=== PATIENT | female | born 1975 | race Caucasian/White ===

== ENCOUNTER 2018-07-12 15:32 | Emergency (ER) | payer BC ==
[2018-07-12 15:50] VITALS: BP 106/72; PULSE 79; RESP 16; TEMP 98.1
--- NOTE | 2018-07-12 16:10 | ED ---
Recheck HPI - General Chief Complaint: Recheck/Abnormal Lab/Rx Stated Complaint: med refill Time Seen by Provider: 07/12/18 15:51 Source: patient, RN notes reviewed, old records reviewed Mode of arrival: ambulatory Limitations: no limitations - History of Present Illness Initial Comments: Patient is a 43-year-old female who presents emergency Department after recently moving back to the area. She presents today needing a refill for Paxil medication. She ran out 2 days ago. She tried to call her previous primary care doctor and he is recently retired. Patient states that [facility] and they would not refill her prescriptions for her. Patient has had any other complaints. - Related Data Previous Rx's Medication Instructions Recorded PARoxetine HCL [Paxil] 30 mg PO DAILY #30 tab 07/12/18 Allergies Allergy/AdvReac Type Severity Reaction Status Date / Time No Known Allergies Allergy Verified 07/12/18 15:50 Review of Systems ROS Statement: Those systems with pertinent positive or pertinent negative responses have been documented in the HPI. ROS Other: All systems not noted in ROS Statement are negative. Past Medical History Past Medical History: No Reported History History of Any Multi-Drug Resistant Organisms: None Reported Past Surgical History: Appendectomy Additional Past Surgical History / Comment(s): breast biopsy Past Psychological History: Depression Smoking Status: Never smoker Past Alcohol Use History: None Reported Past Drug Use History: None Reported General Exam - General Exam Comments Initial Comments: 43-year-old female. Alert and oriented. Patient appears in no distress. Limitations: no limitations General appearance: alert, in no apparent distress Head exam: Present: atraumatic, normocephalic, normal inspection Eye exam: Present: normal appearance, PERRL, EOMI. Absent: scleral icterus, conjunctival injection, periorbital swelling ENT exam: Present: normal exam, mucous membranes moist Neck exam: Present: normal inspection. Absent: tenderness, meningismus, lymphadenopathy Respiratory exam: Present: normal lung sounds bilaterally. Absent: respiratory distress, wheezes, rales, rhonchi, stridor Cardiovascular Exam: Present: regular rate, normal rhythm, normal heart sounds. Absent: systolic murmur, diastolic murmur, rubs, gallop, clicks GI/Abdominal exam: Present: soft, normal bowel sounds. Absent: distended, tenderness, guarding, rebound, rigid Neurological exam: Present: alert, oriented X3, CN II-XII intact Psychiatric exam: Present: normal affect, normal mood Skin exam: Present: warm, dry, intact, normal color. Absent: rash Course Vital Signs 07/12/18 15:46 Temperature 98.1 F Pulse Rate 79 Respiratory 16 Rate Blood Pressure 106/72 O2 Sat by Pulse 99 Oximetry Medical Decision Making - Medical Decision Making 43-year-old female presents today requesting med refill her Paxil. Patient rep orts she's been out of it for 2 days. States she has some other that since she's been off of her medication this past 2 days. Patient is alert and oriented. She denies any significant depression suicidal thoughts. She otherwise appears well. She is asking for referrals for primary care physicians. Patient will be discharged with a short prescription for Paxil. Discussed with prompt follow-up with her primary care doctors and given referrals. All questions were answered. Disposition Clinical Impression: Medication refill Disposition: HOME SELF-CARE Condition: Good Instructions (If sedation given, give patient instructions): Medicine Refill (ED) Additional Instructions: Patient advised to have close follow-up with primary care physician. Return to the emergency department if any alarming signs or symptoms occur. Prescriptions: PARoxetine HCL [Paxil] 30 mg PO DAILY #30 tab Is patient prescribed a controlled substance at d/c from ED?: No Referrals: None,Stated [Primary Care Provider] - 1-2 days Gaby Sims MD [STAFF PHYSICIAN] - 1-2 days Sb Bonilla Jr, DO [Doctor of Osteopathic Medicine] - 1-2 days Kareem Rodriguez MD [STAFF PHYSICIAN] - 1-2 days Mukesh Carter MD [STAFF PHYSICIAN] - 1-2 days Emiliano Courtney DO [STAFF PHYSICIAN] - 1-2 days Time of Disposition: 16:08
== END 2018-07-12 16:22 | disposition home or self-care (01) ==
LOC: EC 15:32
DX: Z76.0 Encounter for issue of repeat prescription (principal)
CPT/HCPCS: 99282

== ENCOUNTER 2018-08-13 13:24 | Emergency (ER) | payer BC ==
[2018-08-13] MEDS ORDERED: SODIUM CHLORIDE 0.9% 2,000 ML IV STA (15:02)
[2018-08-13] MEDS ORDERED: ONDANSETRON 4 MG/2 ML VIAL IVP STA (15:11)
--- NOTE | 2018-08-13 15:22 | ED ---
Nausea/Vomiting/Diarrhea HPI - General Chief complaint: Nausea/Vomiting/Diarrhea Stated complaint: Vomiting-5 weeks Time Seen by Provider: 08/13/18 15:01 Source: patient, RN notes reviewed Mode of arrival: ambulatory Limitations: no limitations - History of Present Illness Initial comments: 43-year-old female presents emergency Department chief complaint of nausea vomiting diarrhea. Patient states symptoms have been persistent for last 6-7 h ours. Patient states that she recently found out she is . Patient is A0 is unsure how far along she is. Patient has contacted blood [employer] for an appointment on August 27. Patient denies any dysuria hematuria. Denies any vaginal bleeding or vaginal discharge. Patient states that she just feels very dehydrated and has mild abdominal cramping. - Related Data Home Medications Medication Instructions Recorded Confirmed L.acidoph,Paracasei, B.lactis 1 cap PO DAILY 08/13/18 08/13/18 [Probiotic] Previous Rx's Medication Instructions Recorded PARoxetine HCL [Paxil] 30 mg PO DAILY #30 tab 07/12/18 Ondansetron Odt [Zofran Odt] 4 mg PO Q8HR PRN #14 tab 08/13/18 Allergies Allergy/AdvReac Type Severity Reaction Status Date / Time No Known Allergies Allergy Verified 08/13/18 15:09 Review of Systems ROS Statement: Those systems with pertinent positive or pertinent negative responses have been documented in the HPI. ROS Other: All systems not noted in ROS Statement are negative. Past Medical History Past Medical History: No Reported History History of Any Multi-Drug Resistant Organisms: None Reported Past Surgical History: Appendectomy Additional Past Surgical History / Comment(s): breast biopsy Past Psychological History: Depression Smoking Status: Never smoker Past Alcohol Use History: None Reported Past Drug Use History: None Reported General Exam Limitations: no limitations General appearance: alert, in no apparent distress Head exam: Present: atraumatic, normocephalic, normal inspection Neck exam: Present: normal inspection. Absent: tenderness, meningismus, lymphadenopathy Respiratory exam: Present: normal lung sounds bilaterally. Absent: respiratory distress, wheezes, rales, rhonchi, stridor Cardiovascular Exam: Present: regular rate, normal rhythm, normal heart sounds. Absent: systolic murmur, diastolic murmur, rubs, gallop, clicks GI/Abdominal exam: Present: soft, normal bowel sounds. Absent: distended, tenderness, guarding, rebound, rigid Back exam: Absent: CVA tenderness (R), CVA tenderness (L) Skin exam: Present: warm, dry, intact, normal color. Absent: rash Course Vital Signs 08/13/18 13:58 Temperature 98.1 F Pulse Rate 86 Respiratory 20 Rate Blood Pressure 120/73 O2 Sat by Pulse 99 Oximetry Medical Decision Making - Medical Decision Making 43-year-old female was in for nausea vomiting diarrhea. Patient is 6 weeks 1 day and ultrasound, heart rate 127. Patient has no vaginal bleeding or vaginal discharge. Patient was hydrated in feels really improved after 2 L of fluid and antiemetics. Patient outlined risk of taking Zofran during . She does understand. Patient will try vitamin B6 and Unisom prior. Patient has follow-up appointment with [employer]. Return parameters discussed. - Lab Data Result diagrams: 08/13/18 15:55 08/13/18 15:55 Lab Results 08/13/18 08/13/18 08/13/18 Range/Units 15:55 15:55 15:55 WBC 14.2 H (3.8-10.6) k/uL RBC 4.53 (3.80-5.40) m/uL Hgb 14.2 (11.4-16.0) gm/dL Hct 42.9 (34.0-46.0) % MCV 94.7 (80.0-100.0) fL MCH 31.4 (25.0-35.0) pg MCHC 33.1 (31.0-37.0) g/dL RDW 13.4 (11.5-15.5) % Plt Count 259 (150-450) k/uL Neutrophils % 93 % Lymphocytes % 4 % Monocytes % 2 % Eosinophils % 0 % Basophils % 0 % Neutrophils # 13.2 H (1.3-7.7) k/uL Lymphocytes # 0.6 L (1.0-4.8) k/uL Monocytes # 0.3 (0-1.0) k/uL Eosinophils # 0.1 (0-0.7) k/uL Basophils # 0.0 (0-0.2) k/uL Sodium 139 (137-145) mmol/L Potassium 4.3 (3.5-5.1) mmol/L Chloride 105 (98-107) mmol/L Carbon Dioxide 25 (22-30) mmol/L Anion Gap 9 mmol/L BUN 11 (7-17) mg/dL Creatinine 0.46 L (0.52-1.04) mg/dL Est GFR (CKD-EPI)AfAm >90 (>60 ml/min/1.73 sqM) Est GFR (CKD-EPI)NonAf >90 (>60 ml/min/1.73 sqM) Glucose 124 H (74-99) mg/dL Calcium 10.0 (8.4-10.2) mg/dL Total Bilirubin 0.5 (0.2-1.3) mg/dL AST 19 (14-36) U/L ALT 33 (9-52) U/L Alkaline Phosphatase 92 (38-126) U/L Total Protein 7.4 (6.3-8.2) g/dL Albumin 4.8 (3.5-5.0) g/dL Lipase 42 (23-300) U/L Urine Color Yellow Urine Appearance Cloudy H (Clear) Urine pH 6.0 (5.0-8.0) Ur Specific [place] 1.031 (1.001-1.035) Urine Protein 1+ H (Negative) Urine Glucose (UA) Negative (Negative) Urine Ketones 2+ H (Negative) Urine Blood Small H (Negative) Urine Nitrite Negative (Negative) Urine Bilirubin Negative (Negative) Urine Urobilinogen <2.0 (<2.0) mg/dL Ur Leukocyte Esterase Negative (Negative) Urine RBC 10 H (0-5) /hpf Urine WBC 3 (0-5) /hpf Ur Squamous Epith Cells 3 (0-4) /hpf Urine Bacteria Occasional H (None) /hpf Urine Mucus Many H (None) /hpf Disposition Clinical Impression: Dehydration, Nausea/vomiting in Disposition: HOME SELF-CARE Condition: Stable Instructions (If sedation given, give patient instructions): Hyperemesis Gravidarum (ED) Additional Instructions: Please return to the Emergency Department if symptoms worsen or any other concerns. Prescriptions: Ondansetron Odt [Zofran Odt] 4 mg PO Q8HR PRN #14 tab PRN Reason: Nausea Is patient prescribed a controlled substance at d/c from ED?: No Referrals: Kareem Rodriguez MD [Primary Care Provider] - 1-2 days Time of Disposition: 16:46
[2018-08-13 16:13] LABS: Appearance,Urine Cloudy (Clear); Bacteria,Urine Occasional /hpf; Bilirubin,Urine Negative (Negative); Blood,Urine Small (Negative); Color,Urine Yellow; Glucose,Urine (UA) Negative (Negative); Ketones,Urine 2+ (Negative); Leukocyte Esterase,Urine Negative (Negative); Mucus,Urine Many /hpf; Nitrite,Urine Negative (Negative); Protein,Urine 1+ (Negative); RBC,Urine 10 /hpf (0-5); Specific Gravity,Urine 1.031 (1.001-1.035); Squamous Epithelial Cell,Urine 3 /hpf (0-4); Urobilinogen,Urine <2.0 mg/dL (<2.0)
[2018-08-13 16:17] LABS: ALT 33 U/L (9-52); AST 19 U/L (14-36); Albumin 4.8 g/dL (3.5-5.0); Alkaline Phosphatase 92 U/L (38-126); Anion Gap 9 mmol/L; Blood Urea Nitrogen 11 mg/dL (7-17); Carbon Dioxide 25 mmol/L (22-30); Chloride 105 mmol/L (98-107); Glucose 124 mg/dL (74-99); Lipase 42 U/L (23-300); Potassium 4.3 mmol/L (3.5-5.1); Sodium 139 mmol/L (137-145); Total Bilirubin 0.5 mg/dL (0.2-1.3); Total Protein 7.4 g/dL (6.3-8.2)
[2018-08-13 16:23] LABS: Basophils % (A) 0 %; Eosinophils # (A) 0.1 k/uL (0-0.7); Eosinophils % (A) 0 %; HCT 42.9 % (34.0-46.0); HGB 14.2 gm/dL (11.4-16.0); Lymphocytes # (A) 0.6 k/uL (1.0-4.8); Lymphocytes % (A) 4 %; MCH 31.4 pg (25.0-35.0); MCHC 33.1 g/dL (31.0-37.0); MCV 94.7 fL (80.0-100.0); Mean Platelet Volume 8.1; Monocytes # (A) 0.3 k/uL (0-1.0); Monocytes % (A) 2 %; Neutrophils # (A) 13.2 k/uL (1.3-7.7); Neutrophils % (A) 93 %; Platelet Count 259 k/uL (150-450); RBC 4.53 m/uL (3.80-5.40); RDW 13.4 % (11.5-15.5); WBC 14.2 k/uL (3.8-10.6)
--- NOTE | 2018-08-13 16:44 | US ---
EXAMINATION TYPE: Transabdominal DATE OF EXAM: 08/13/2018 4:34 PM COMPARISON: NONE CLINICAL HISTORY: Vomiting EXAM PERFORMED: Transabdominal (TA) EXAM MEASUREMENTS: GESTATIONAL AGE / DATING Physician Established: Not yet established Dates by LMP: (6 weeks/3 days) EDC: 04/05/19 Dates by First Scan: No previous this is first scan Dates by Current Scan for: (6 weeks/1 days) EDC: 04/07/19 MATERNAL ANATOMY Uterus: 8.7 x 4.5 x 5.6cm Right Ovary: 2.3 x 1.2 x 1.3cm Left Ovary: 3.2 x 2.0 x 1.7 Post CDS / Adnexa: wnl Presence of free fluid: no GESTATION / SURVEY CRL: 0.4 (6 weeks/1 days) Yolk Sac (normal less than 6mm): 2mm Heart Rate: 127 bpm Rhythm: Normal IUP: Viable IUP Date of LMP: 06/29/18 Beta HcG (if available): Not available at this time. IMPRESSION: The ultrasound gestational age is 6 weeks and 1 day. No complicating process seen.
[2018-08-13 17:13] LABS: HCG,Quantitative Serum 67647.5 mIU/mL
[2018-08-13 17:43] VITALS: BP 108/60; PULSE 78; RESP 18; TEMP 97.9
== END 2018-08-13 17:40 | disposition home or self-care (01) ==
LOC: EC 13:24
DX: O99.281 Endocrine, nutritional and metabolic diseases complicating pregnancy, first trimester (principal); E86.0 Dehydration; O99.89 Other specified diseases and conditions complicating pregnancy, childbirth and the puerperium; R11.2 Nausea with vomiting, unspecified; Z3A.01 Less than 8 weeks gestation of pregnancy; Z79.899 Other long term (current) drug therapy
CPT/HCPCS: 36415; 80053; 83690; 85025; 81001; 84702; 76801; 99284; 96374; 96361 ×2; J2405

== ENCOUNTER → 2020-09-30 | Outpatient (CLI) | payer OTHER ==
--- NOTE | 2020-09-30 08:02 | US ---
EXAMINATION TYPE: US abdomen complete DATE OF EXAM: 09/30/2020 COMPARISON: NONE CLINICAL HISTORY: R19.8 Other specified symptoms and signs involving. EXAM MEASUREMENTS: Liver Length: 14.0 cm Gallbladder Wall: 0.2 cm CBD: 0.3 cm Spleen: 9.1 cm Right Kidney: 9.8 x 2.9 x 3.9 cm Left Kidney: 9.1 x 3.8 x 3.4 cm Pancreas: Tail obscured by overlying bowel gas, visualized portions obscured by bowel Liver: wnl Gallbladder: wnl Evidence for sonographic Mancini's sign: No CBD: wnl Spleen: wnl Right Kidney: No hydronephrosis or masses seen Left Kidney: No hydronephrosis or masses seen Upper IVC: wnl Abd Aorta: wnl The visualized liver is homogenous. The intrahepatic portion of the IVC and proximal abdominal aorta are within normal limits. There is no evidence of shadowing mobile cholelithiasis. Common bile patric t is unremarkable. The visualized portions of the pancreas are homogenous. The spleen is unremarkab le. Kidneys are symmetric and free of hydronephrosis. No renal lesions are seen. IMPRESSION: Unremarkable study
== END | disposition home or self-care (01) ==
LOC: RADUSWWP 07:02
PROVIDERS: ATTEND Family Medicine
DX: R19.8 Other specified symptoms and signs involving the digestive system and abdomen (principal)
CPT/HCPCS: 76700

== ENCOUNTER → 2021-03-11 | Outpatient (CLI) | payer OTHER ==
--- NOTE | 2021-03-12 09:11 | US ---
EXAMINATION TYPE: US pelvic complete DATE OF EXAM: 03/11/2021 COMPARISON: NONE CLINICAL HISTORY: 45-year-old female N92.6 ABN MENSES, N94.6 MENSES PAINFUL. TECHNIQUE: Transabdominal sonographic images of the pelvis were acquired. Transvaginal sonographic i mages were medically necessary to better assess the following anatomy: Ovaries Date of LMP: 02/15/2021 FINDINGS: EXAM MEASUREMENTS: Uterus: 8.2 x 3.7 x 5.0 cm Endometrial Stripe: 0.8 cm Right Ovary: 2.1 x 1.3 x 1.5 cm Left Ovary: 3.4 x 2.2 x 1.8 cm 1. Uterus: Anteverted. There is a tiny 3 mm cervical nabothian cyst. There is an oval hypoechoic ar ea along the posterior uterine body that is primarily subserosal measuring 1.3 x 1.2 x 1.0 cm 2. Endometrium: wnl 3. Right Ovary: wnl 4. Left Ovary: wnl 5. Bilateral Adnexa: wnl 6. Posterior cul-de-sac: wnl IMPRESSION: A 1.3 cm subserosal fibroid along the posterior uterine body. Endometrial stripe measuring 8 mm. No s pecific abnormality otherwise seen.
== END ==
LOC: RADUSWWP 15:33
PROVIDERS: ATTEND Family Medicine
DX: D25.2 Subserosal leiomyoma of uterus (principal)
CPT/HCPCS: 76830; 76856

== ENCOUNTER → 2021-07-07 | Outpatient (CLI) | payer OTHER ==
--- NOTE | 2021-07-08 10:11 | MM ---
Reason for exam: clinical finding. Last mammogram was performed 17 years and 8 months ago. History: Patient is nulliparous. Benign excisional biopsy of the right breast, 2003. Physical Findings: A clinical breast exam by your physician is recommended on an annual basis and results should be correlated with mammographic findings. [facility] Diagnostic Mammo w CAD SADIE Bilateral CC and MLO view(s) were taken. No prior studies available for comparison. The breast tissue is extremely dense which could obscure a lesion on mammography. Benign calcifications in the left breast. Distortion far upper outer right breast. Rule out mass versus post operative changes. These results were verbally communicated with the patient and result sheet given to the patient on 07/07/21. ASSESSMENT: Incomplete: need additional imaging evaluation, BI-RAD 0 RECOMMENDATION: Ultrasound of the right breast.
--- NOTE | 2021-07-08 10:14 | USB ---
Reason for exam: additional evaluation requested from abnormal screening. History: Patient is nulliparous. Benign excisional biopsy of the right breast, 2003. Physical Findings: A clinical breast exam by your physician is recommended on an annual basis and results should be correlated with mammographic findings. US Breast Limited RT Right limited breast ultrasound including focal area of concern, retroareolar and axilla demonstrates a 1.0 x 1.0 x 0.7cm smooth, mixed lesion at 11 o'clock, 2cm from nipple and a 0.2 x 2.1 x 1.5cm irregular, solid, hypoechoic, vascular lesion at 11 o'clock, 3cm from nipple. Biopsy recommended. These results were verbally communicated with the patient and result sheet given to the patient on 07/07/21. ASSESSMENT: Suspicious, BI-RAD 4 RECOMMENDATION: Ultrasound core biopsy of the right breast. (x 2) Patient is unsure of what she wants to do, she will call Dr. Aranda with decision. Called Dr. Aranda's office with mammographic findings. PRELIMINARY REPORT CALLED AND FAXED TO DR. ARANDA ON 07/08/21.
== END | disposition home or self-care (01) ==
LOC: RADMAMWWP 14:15
PROVIDERS: ATTEND Family Medicine
DX: R92.1 Mammographic calcification found on diagnostic imaging of breast (principal); N64.89 Other specified disorders of breast
CPT/HCPCS: 77066

== ENCOUNTER → 2023-06-21 | Outpatient (CLI) | payer OTHER ==
--- NOTE | 2023-06-21 11:27 | USB ---
Reason for Exam: Clinical finding. Indicated Problems: Lump or thickening of the left side. Patient History: Menarche at age 15. Patient has no children. 2003, Benign Excisional Biopsy on the right side. Risk Values: Ronna 5 year model risk: 1.4%. NCI Lifetime model risk: 12.7%. Technique: Method: Whole Breast Handheld. Patient Position: RPO. Prior Study Comparison: 03/21/2003 Bilateral Special View Mammogram, [facility]. 04/14/2003 Screening Mammogram, Unknown. 10/24/2003 Right Diagnostic Mammogram, [facility]. 07/07/2021 Bilateral Diagnostic Mammogram, [facility]. Findings: The whole breast of the left breast, the axilla of the left breast and the retroareolar of the left breast were scanned. Multiple benign-appearing cysts are present within the left breast. Notable cysts include a bilobed cyst 2:00 addition 4 cm from the nipple which appears to correlate with the patient's palpable abnormality. Additional large cysts are present such as 3:00 position 4 cm from the nipple, 9:00 position 4 cm from the nipple 10:00 position 4 cm from the nipple. The patient's large benign-appearing calcification is identified by ultrasound. Overall Assessment: Benign, BI-RAD 2 Management: Screening Mammogram of both breasts in 1 year. A clinical breast exam by your physician is recommended on an annual basis and results should be correlated with mammographic findings. This exam should not preclude additional follow-up of suspicious palpable abnormalities. Results were given to the patient verbally at the time of exam. Electronically signed and approved by: Marky Mike D.O. Radiologis
== END | disposition home or self-care (01) ==
LOC: RADUSWWP 10:36
DX: N60.12 Diffuse cystic mastopathy of left breast (principal); C50.411 Malignant neoplasm of upper-outer quadrant of right female breast; Z17.0 Estrogen receptor positive status [ER+]

== ENCOUNTER → 2023-09-21 | Outpatient (CLI) | payer OTHER ==
[2023-09-21 18:07] LABS: HCT 41.4 % (37.2-46.3); HGB 13.5 g/dL (12.0-15.0); MCH 31.1 pg (27.0-32.0); MCHC 32.6 g/dL (32.0-37.0); MCV 95.4 FL (80.0-97.0); Mean Platelet Volume 10.8 FL (9.5-12.2); NRBC Per 100 WBC 0 X 10*3/uL (0.00-0.01); Platelet Count 246 X 10*3/uL (140-440); RBC 4.34 X 10*6/uL (4.10-5.20); RDW 12.3 % (11.5-14.5); WBC 6.12 X 10*3/uL (4.50-10.00)
[2023-09-21 20:58] LABS: ALT 12 U/L (8-44); AST 15 U/L (13-35); Albumin 4.8 g/dL (3.8-4.9); Alkaline Phosphatase 81 U/L (41-126); BUN/Creat Ratio 14.38 Ratio (12.00-20.00); Blood Urea Nitrogen 11.5 mg/dL (9.0-27.0); Calcium 9.6 mg/dL (8.7-10.3); Chloride 104 mmol/L (96-109); Globulin 2.4 g/dL (1.6-3.3); Glucose 89 mg/dL (70-110); Potassium 4.3 mmol/L (3.5-5.5); Sodium 140 mmol/L (135-145); Total Bilirubin 0.3 mg/dL (0.3-1.2); Total Protein 7.2 g/dL (6.2-8.2)
[2023-09-21 21:11] LABS: Appearance,Urine Turbid (Clear); Bilirubin,Urine Negative (Negative); Blood,Urine Negative (Negative); Color,Urine Dark Yellow (Yellow); Ketones,Urine Trace (Negative); Nitrite,Urine Negative (Negative); PH, Urine 5.5; Specific Gravity,Urine 1.027 (1.001-1.030)
[2023-09-21 22:03] LABS: Bacteria,Urine None Seen (None Seen); Calcium Oxalate Crystals,Urine Present (None Seen)
== END | disposition home or self-care (01) ==
LOC: LABWHC1 11:51
PROVIDERS: ATTEND Obstetrics & Gynecology Gynecologic Oncology
DX: C50.919 Malignant neoplasm of unspecified site of unspecified female breast (principal); N92.0 Excessive and frequent menstruation with regular cycle
CPT/HCPCS: 36415; 80053; 81001; 81025; 82378; 85027; 86304; 86850; 86900; 86901; 87086

== ENCOUNTER → 2024-04-01 | Outpatient (CLI) | payer OTHER ==
--- NOTE | 2024-04-03 15:36 | MR ---
EXAMINATION TYPE: MR brain wo/w con DATE OF EXAM: 04/01/2024 7:33 PM COMPARISON: None CLINICAL INDICATION: Female, 48 years old with history of C50.411 MALIG NEOPLASM OF UPPER-OUTER QUAD; PHH, breast cancer, insomnia, headaches TECHNIQUE: Multi planar, multi sequence imaging was performed through the brain including: T1, T2, In version recovery, susceptibility weighted imaging and gradient echo imaging and Diffusion weighted im aging. The patient was then given intravenous contrast and multi planar, T1 fat-saturation images wer e obtained. IV Contrast: 6 mL Gadobutrol FINDINGS: The ac-white junctions, ventricular system, basal cisterns appear unremarkable. Diffusion-weighted imaging shows no evidence of restricted diffusion to suggest acute/subacute infarct. Intracranial ar terial flow voids are maintained. Midline structures show no abnormality.. The susceptibility weighte d images do not reveal any evidence for micro-hemorrhage. After administration of gadolinium, no abno rmal enhancement is seen. The bone marrow signal is within normal limits. Paranasal sinuses and mastoid air cells: No significant paranasal sinus disease. Visualized orbits: Orbital contents are intact. IMPRESSION: No evidence of intracranial mass, acute/subacute infarct, or abnormal enhancement. [facility], , 04/03/2024 3:33 PM
== END | disposition home or self-care (01) ==
LOC: RADMRIMAIN 18:38
PROVIDERS: ATTEND Internal Medicine Hematology & Oncology
DX: C50.411 Malignant neoplasm of upper-outer quadrant of right female breast (principal); Z17.0 Estrogen receptor positive status [ER+]; G47.00 Insomnia, unspecified; R51.9 Headache, unspecified
CPT/HCPCS: 70553; A9585

== ENCOUNTER → 2024-04-10 | Outpatient (CLI) | payer OTHER ==
[2024-04-10 15:16] VITALS: BP 107/72; PULSE 71; RESP 16; TEMP 98.3
--- NOTE | 2024-04-10 15:53 | P.SLEEP ---
History of Present Illness DATE: 04/10/2024 CONSULTATION/NEW PATIENT EVALUATION HISTORY OF PRESENT ILLNESS/SLEEP-WAKE EVALUATION: 48-year-old lady had been evaluated in the sleep center for possible obstructive sleep apnea hypopnea syndrome. SLEEP SCHEDULE: Usually sleep schedule from 10 PM to 10 AM on weekdays and until 11 AM on weekend. FALLING ASLEEP: Patient has difficulties with falling asleep, has TV set in bedroom. DURING SLEEP: Patient snores and wakes up from sleep more than 15 times with up to 4 episodes of nocturia. No history of hypnogogical hallucinations, sleep paralysis, or cataplexy. DURING THE DAY/WAKE STATE: In the morning patient wake up tired, has episodes of irritability, depression and anxiety. [place] sleepiness scale is 1. Patient does not take naps. PAST MEDICAL HISTORY: Right breast cancer, anxiety, depression, menopause. PAST SURGICAL HISTORY: Total hysterectomy right breast partial mastectomy. MEDICATIONS: Have been reviewed, please see below. SOCIAL HISTORY: Please see below. FAMILY HISTORY: Please see below. REVIEW OF SYSTEMS: Snoring, multiple awakenings from sleep. No fevers. No double vision. No recent chest pain. No shortness of breath. No abdominal pain. No bleeding episodes. No blood in urine. No seizure episodes. PHYSICAL EXAMINATION: GENERAL: A pleasant patient without any distress. VITAL SIGNS: Please see below, weight 137.2 pounds, BMI 22.3. HEENT: PERRLA, EOMI. Evaluation of oropharynx showed tongue protrudes midline, low position of soft palate Mallampati 4. NECK: Supple. No JVD. Thyroid is not palpable. 13-3/4 inches in circumference. LUNGS: Clear to percussion and to auscultation. Good air exchange. No wheezing or rhonchi. HEART: S1, S2 regular. No murmurs, gallops or rubs. ABDOMEN: Soft and nontender. Bowel sounds are present. No organomegaly appreciated. EXTREMITIES: No clubbing or cyanosis. ROAD ROLLER OPERATOR: Awake, alert, and oriented x3. Cranial nerves 2 to 7 intact. There is no fasciculation or atrophy noted. No focal deficits observed. ASSESSMENT: 1. Snoring, awakenings from sleep up to 15 times, extremely low position of soft palate Mallampati 4, mild retrognathia 1 to 2 mm. Obstructive sleep apnea hypopnea syndrome. 2. Difficulties to initiate sleep, psychophysiological insomnia. 3. Anxiety. 4. Depression. 5 status post total hysterectomy. 6 . Status post right partial mastectomy for cancer. PLAN: 1. Polysomnography for evaluation of patient's breathing during sleep. 2. Following plan after reading sleep study. 3. Preferable position during sleep on the side. 4. No driving if patient feels any sleepiness. Patient is aware of civil and criminal liability for unsafe driving. 5. Sleep hygiene with regular sleep time for at least 7.5-8 hours. 6. Watching weight. Thank you very much for referring this patient for consultation. Sincerely, Troy Lowe MD, PhD, FAASM. Diplomat of [employer], Sleep Medicine Board by [employer] Trouble Clerk of [facility] [place] cc: Emiliano Courtney DO Past Medical History Past Medical History: Cancer Additional Past Medical History / Comment(s): INSOMNIA, BREAST CANCER - R BREAST MASTECTOMY, ANXIETY AND DEPRESSION, History of Any Multi-Drug Resistant Organisms: None Reported Past Surgical History: Appendectomy, Hysterectomy Additional Past Surgical History / Comment(s): breast biopsy, MASTECTOMY - R BREAST Past Psychological History: Anxiety, Depression Smoking Status: Former smoker Past Alcohol Use History: None Reported Additional Drug Use History / Comment(s): CANNABIS EDIBLES - Past Family History Mother Family Medical History: Hyperlipidemia, Hypertension, Thyroid Disorder Additional Family Medical History / Comment(s): SNORING Father Family Medical History: Cancer, Sleep Apnea/CPAP/BIPAP Additional Family Medical History / Comment(s): SNORING, CANCER - PROSTATE AND BLADDER Medications and Allergies Home Medications Medication Instructions Recorded Confirmed Type PARoxetine HCL [Paxil] 30 mg PO DAILY #30 tab 07/12/18 08/13/18 Rx L.acidoph,Paracasei, B.lactis 1 cap PO DAILY 08/13/18 08/13/18 History [Probiotic] Ondansetron Odt [Zofran Odt] 4 mg PO Q8HR PRN #14 tab 08/13/18 Rx Allergies Allergy/AdvReac Type Severity Reaction Status Date / Time No Known Allergies Allergy Verified 08/13/18 15:09 Physical Exam Vitals: Vital Signs Temp Pulse Resp BP Pulse Ox 04/10/24 15:13 98.3 F 71 16 107/72 98 Intake and Output 04/10/24 04/10/24 04/10/24 06:59 14:59 22:59 Other: Weight 62.199 kg Sleep Note - Sleep Data ESS Total: 1 - Sleep Note Sleep Note: Temperature: 98.3 F Pulse Rate: 71 Respiratory Rate: 16 Blood Pressure: 107/72 SpO2: 98 Height: 5 ft 5.7 in Weight: 62.199 kg BMI: Neck Circumference: 13.7
== END ==
LOC: 3 N SLEEP 14:33
PROVIDERS: ATTEND Internal Medicine
DX: G47.33 Obstructive sleep apnea (adult) (pediatric) (principal); F41.9 Anxiety disorder, unspecified; F32.A Depression, unspecified; Z98.890 Other specified postprocedural states; Z87.891 Personal history of nicotine dependence
CPT/HCPCS: 99211

== ENCOUNTER 2024-05-16 19:36 | Outpatient (CLI) | payer OTHER ==
--- NOTE | 2024-05-23 19:14 | P.PCN ---
Description of Procedure: POLYSOMNOGRAPHY REPORT PROCEDURE(S)/DATE(S): Polysomnography 05/16/2024 CLINICAL: Patient has been seen in the sleep center for evaluation of obstructive sleep apnea-hypopnea syndrome. Please see my consultation. Sleep study has been done for evaluation of patient breathing during the sleep. PROCEDURE: The standard montage for clinical polysomnography included the electroencephalogram, the electrooculogram, the mentalis surface electromyography and Lead II cardiography. The respiratory battery consisted of measurements of nasal/buccal air flow, pressure transducer measurements from nose, thoracic and/or abdominal effort and intercostal surface electromyography. Video monitoring has been done to check for any parasomnia events. Nocturnal oxyhemoglobin saturations were obtained by finger oximetry. Step-cat titration with positive airway pressure was utilized to control the respiratory events, if necessary. RESULTS: During the diagnostic sleep study sleep efficiency was extremely short 30.2%. Latency to sleep onset was prolonged to 46.5 min. Sleep architecture s howed stage NI was significantly increased to 22.4%, Delta sleep was absent 0%, REM sleep was absent 0%. Total sleep time was only 127.5 minutes. Respiratory channel showed 0 obstructive apneas, 0 mixed apneas, 0 central apneas, 0 hypopneas with lowest oxygen level 94%. Total apnea hypopnea index was 0. Heart rate was in the range between 56 and 76, average 64. EMG showed 0 periodic limb movements per hour. IMPRESSIONS: 1. Extremely short sleep time does not allowed to make reliable conclusion. No significant respiratory abnormalities have been documented, normal oxygenation during sleep. 2. No significant periodic limb movements have been documented. 3. Extremely low sleep efficiency indicate insomnia versus first night adaptation response Please see other impressions from consultation PLAN: 1. I will see patient for follow-up visit to explain results of the test and following plan. 2. Losing weight program. 3. Sleep hygiene with regular time in bed for at least 7-1/2 hours. 4. No driving if feeling sleepiness. Thank you very much for allowing me to participate in the management of your patient. Sincerely, Troy Lowe MD, PhD, FAASM. Diplomat of [employer], Sleep Medicine Board by [employer] Melter Supervisor [employer] [facility] [place] cc: Emiliano Courtney DO
== END 2024-05-17 05:50 | disposition home or self-care (01) ==
LOC: 3 N SLEEP 19:36
PROVIDERS: ATTEND Internal Medicine
DX: G47.33 Obstructive sleep apnea (adult) (pediatric) (principal)
CPT/HCPCS: 95810

== ENCOUNTER → 2024-06-19 | Outpatient (CLI) | payer OTHER ==
[2024-06-19 15:57] VITALS: BP 111/76; PULSE 84; RESP 16; TEMP 98.1
--- NOTE | 2024-06-19 17:36 | P.PROGSL ---
Subjective DATE: 06/19/2024 FOLLOW UP VISIT. Patient returned to sleep center for follow-up visit we discussed results of sleep study and following plan. I discussed results of polysomnogram with patient in details. Extremely low sleep efficiency 30.2% does not allowed to do 100% conclusion about patient respiration during the test, although lowest oxyge n level was 94% and no abnormal aspiration to have been documented. Patient continues to have significant difficulties with sleep at night with awakenings from sleep and difficulties to initiate sleep again. Patient tried several different medications for sleep including Lunesta, zolpidem including extended release form, zaleplon, trazodone, clonidine without significant improvements of quality of sleep. Pope sleepiness scale is 2. MEDICATIONS: Please see below During physical exam: GENERAL: A pleasant patient without any distress. VITAL SIGNS: Please see below. HEENT: PERRLA, EOMI. NECK: Supple. No JVD. LUNGS: Clear to percussion and to auscultation. Good air exchange. No wheezing or rhonchi. HEART: S1, S2 regular. ABDOMEN: Soft and nontender. EXTREMITIES: No clubbing or cyanosis. STATISTICAL METHODS PROFESSOR: Awake, alert, and oriented x3. No focal deficit. Impressions: 1. Psychophysiological insomnia 2. Multiple awakenings from sleep. Polysomnogram was negative for obstructive sleep apnea hypopnea syndrome, but sleep efficiency was less than 2 hours which does not allow to make reliable conclusion. 3. Anxiety. 4. Depression. 5. Status post total hysterectomy. 6. Status post right mastectomy for cancer. Plan: 1. Home sleep apnea test for reevaluation of patient breathing during the sleep. 2. Sleep hygiene with regular time in bed for at least 8 hours. 3. I discussed with patient psychological techniques for treatment of insomnia including stimulus control, paradoxical intention, worried time. 4. Precautions related to driving. No driving if feel any sleepiness. Patient is aware about civil and criminal liability for unsafe driving, promised to follow recommendations. 5. Patient will start Belsomra 10 mg p.o. nightly 30 minutes before bedtime. 6. Follow-up visit in 1-2 months. Thank you very much for allowing me to participate in the management of your patient. Troy Lowe MD, PhD, FAASM. Diplomat of [employer], Sleep Medicine Board by [employer] [facility] [place] cc: Emiliano Courtney DO Objective - Vital Signs Vital Signs: Vital Signs Temp 98.1 F 06/19/24 15:56 Pulse 84 06/19/24 15:56 Resp 16 06/19/24 15:56 BP 111/76 06/19/24 15:56 Pulse Ox 95 06/19/24 15:56 FiO2 Intake & Output 06/18/24 06/19/24 06/19/24 18:59 06:59 18:59 Weight 63.503 kg Home Medications: Home Medications Medication Instructions Recorded Confirmed Type PARoxetine HCL [Paxil] 30 mg PO DAILY #30 tab 07/12/18 08/13/18 Rx L.acidoph,Paracasei, B.lactis 1 cap PO DAILY 08/13/18 08/13/18 History [Probiotic] Ondansetron Odt [Zofran Odt] 4 mg PO Q8HR PRN #14 tab 08/13/18 Rx
== END ==
LOC: 3 N SLEEP 15:46
PROVIDERS: ATTEND Internal Medicine
DX: F51.04 Psychophysiologic insomnia (principal); F41.9 Anxiety disorder, unspecified; F32.A Depression, unspecified; Z90.710 Acquired absence of both cervix and uterus
CPT/HCPCS: 99212

== ENCOUNTER → 2024-06-25 | Outpatient (CLI) | payer OTHER ==
--- NOTE | 2024-06-26 11:37 | P.PCN ---
Description of Procedure: CLINICAL: A home sleep apnea test has been done for confirmation of possible obstructive sleep apnea-hypopnea syndrome. DESCRIPTION OF PROCEDURE: RESULTS: Recording time was 9 hours 20 minutes. Evaluation time was 8 hours 40 minutes. Evaluation time is sufficient for making conclusion about results of the test. Raw data of sleep recording has been reviewed and is adequate. Respiratory channel showed 19 apneas and 5 hypopneas. Apnea-hypopnea index was 2.8 per hour. Pulse rate in the range between minimum 44, maximum 158, average 67 by computer calculation. Lowest desaturation was 71%. IMPRESSION: 1. No significant amount of apneas or hypopneas but oxygen was below normal range., possibly secondary to artifact. Please see other impressions from consultation. PLAN: 1. Repeat home sleep apnea test. 2. Following plan after reading sleep study 3. Sleep hygiene with regular time in bed for at least 8 hours. 4. No driving if feeling any sleepiness. Thank you very much for allowing me to participate in the management of your patient. Sincerely, Troy Lowe MD, PhD, FAASM Diplomat of [employer] Sleep Medicine Board of [employer] Sales Team Leader of [facility] [place]
== END ==
LOC: 3 N SLEEP 16:40
PROVIDERS: ATTEND Internal Medicine
DX: R09.02 Hypoxemia (principal)

== ENCOUNTER → 2024-07-17 | Outpatient (CLI) | payer OTHER ==
[2024-07-17 14:23] VITALS: BP 127/80; PULSE 92; RESP 16; TEMP 98.3
--- NOTE | 2024-07-17 15:38 | P.PROGSL ---
Subjective DATE: 07/17/2024 FOLLOW UP VISIT. Patient returned to sleep center for follow-up visit to discuss results of sleep studies and following plan. I discussed results of sleep studies with patient in details. Patient had polysomnogram which showed no oxygen this and no significant abnormalities of respiration, but patient slept only for about 2 raquel rs during sleep study. We did home sleep apnea test which also did not show any significant increasing of apnea hypopnea index, total apnea hypopnea index was 2.8, but during of the home test it was short period of time and oxygen level came down to 71%, which most probably related to position of oximeter on the finger for artifact. Patient continued to have difficulties with falling asleep and maintaining sleep. Previous visit I started him on Belsomra, but patient did not slept better with medication. Tamms sleepiness scale is slightly increased to 12. MEDICATIONS: Belsomra 10 mg nightly was stopped During physical exam: GENERAL: A pleasant patient without any distress. VITAL SIGNS: Please see below, weight 143 pounds, BMI 23.2. HEENT: PERRLA, EOMI. NECK: Supple. No JVD. LUNGS: Clear to percussion and to auscultation. Good air exchange. No wheezing or rhonchi. HEART: S1, S2 regular. ABDOMEN: Soft and nontender. EXTREMITIES: No clubbing or cyanosis. MANUFACTURING TECHNOLOGY ANALYST: Awake, alert, and oriented x3. No focal deficit. Impressions: 1. No significant respiratory abnormalities have been documented during sleep studies. 2. Patient has difficulties to initiate and maintain sleep, low sleep efficiency have been seen on polysomnogram. Insomnia psychophysiological and secondary to anxiety. 3. Anxiety. 4. Depression. 5. Status post total hysterectomy. 6. Status post a right mastectomy for cancer. 7. Hot flashes. Plan: 1. Patient will be started on temazepam 15 mg tablets, started from half tablet 30 minutes before bedtime up to 1 tablet. 2. Sleep hygiene with regular time in bed for at least 8 hours. 3. Precautions related to driving. No driving if feel any sleepiness. Patient is aware about civil and criminal liability for unsafe driving, promised to follow recommendations. 4. Follow up visit in 2 months or earlier if patient has any problems. Thank you very much for allowing me to participate in the management of your patient. Troy Lowe MD, PhD, FAASM. Diplomat of [employer] Medicine, Sleep Medicine Board by [employer] Medicine Lockstitcher [facility] [place] cc: Taniya Courtney DO Objective - Vital Signs Vital Signs: Vital Signs Temp 98.3 F 07/17/24 14:22 Pulse 92 07/17/24 14:22 Resp 16 07/17/24 14:22 BP 127/80 07/17/24 14:22 Pulse Ox 95 07/17/24 14:22 FiO2 Intake & Output 07/16/24 07/17/24 07/17/24 18:59 06:59 18:59 Weight 64.864 kg Home Medications: Home Medications Medication Instructions Recorded Confirmed Type PARoxetine HCL [Paxil] 30 mg PO DAILY #30 tab 07/12/18 08/13/18 Rx L.acidoph,Paracasei, B.lactis 1 cap PO DAILY 08/13/18 08/13/18 History [Probiotic] Ondansetron Odt [Zofran Odt] 4 mg PO Q8HR PRN #14 tab 08/13/18 Rx
== END ==
LOC: 3 N SLEEP 14:15
PROVIDERS: ATTEND Internal Medicine
DX: G47.00 Insomnia, unspecified (principal); F41.9 Anxiety disorder, unspecified; F32.A Depression, unspecified; R23.2 Flushing; Z85.3 Personal history of malignant neoplasm of breast; Z90.710 Acquired absence of both cervix and uterus; Z90.11 Acquired absence of right breast and nipple
CPT/HCPCS: 99212

== ENCOUNTER → 2024-09-11 | Outpatient (CLI) | payer OTHER ==
[2024-09-11 16:14] VITALS: BP 112/74; PULSE 70; RESP 12; TEMP 98
--- NOTE | 2024-09-11 16:51 | P.PROGSL ---
Subjective DATE: 09/11/2024 FOLLOW UP VISIT. Patient returned to sleep center for treatment of insomnia. Patient was tried on several medication for insomnia before and it was no any good effect. Last visit patient was started on temazepam 15 mg at bedtime. With this medication 5 to 6 hours per night, feels better. . [place] sleepiness scale is 10. MEDICATIONS: Please see below During physical exam: GENERAL: A pleasant patient without any distress. VITAL SIGNS: Please see below. HEENT: PERRLA, EOMI. NECK: Supple. No JVD. LUNGS: Clear to percussion and to auscultation. Good air exchange. No wheezing or rhonchi. HEART: S1, S2 regular. ABDOMEN: Soft and nontender. EXTREMITIES: No clubbing or cyanosis. NURSING TECHN: Awake, alert, and oriented x3. No focal deficit. Impressions: 1. Insomnia psychophysiological and secondary to anxiety 2. Anxiety. 3. Depression. 4. Status post total hysterectomy. 5. Status post right mastectomy for cancer. 6. Hot flashes. Plan: 1. Patient will continue treatment with temazepam 15 mg at bedtime. 2. Sleep hygiene with regular time in bed for at least 8 hours. 3. Precautions related to driving. No driving if feel any sleepiness. Patient is aware about civil and criminal liability for unsafe driving, promised to follow recommendations. 4. Follow up visit in 2 months or earlier if patient has any problems. Thank you very much for allowing me to participate in the management of your patient. Troy Lowe MD, PhD, FAASM. Diplomat of [place], Sleep Medicine Board by [place] Director Of Customer Service of [facility] [place] Objective - Vital Signs Vital Signs: Vital Signs Temp 98 F 09/11/24 16:14 Pulse 70 09/11/24 16:14 Resp 12 09/11/24 16:14 BP 112/74 09/11/24 16:14 Pulse Ox 98 09/11/24 16:14 FiO2 Intake & Output 09/10/24 09/11/24 09/11/24 18:59 06:59 18:59 Weight 64.864 kg Home Medications: Home Medications Medication Instructions Recorded Confirmed Type PARoxetine HCL [Paxil] 30 mg PO DAILY #30 tab 07/12/18 08/13/18 Rx L.acidoph,Paracasei, B.lactis 1 cap PO DAILY 08/13/18 08/13/18 History [Probiotic] Ondansetron Odt [Zofran Odt] 4 mg PO Q8HR PRN #14 tab 08/13/18 Rx
== END ==
LOC: 3 N SLEEP 15:23
PROVIDERS: ATTEND Internal Medicine
DX: G47.00 Insomnia, unspecified (principal); F41.9 Anxiety disorder, unspecified; F32.A Depression, unspecified; N95.1 Menopausal and female climacteric states; R23.2 Flushing; Z90.710 Acquired absence of both cervix and uterus; Z90.11 Acquired absence of right breast and nipple
CPT/HCPCS: 99212

== ENCOUNTER → 2024-11-13 | Outpatient (CLI) | payer OTHER ==
[2024-11-13 13:45] VITALS: BP 111/74; PULSE 88; RESP 16; TEMP 98.8
--- NOTE | 2024-11-13 14:02 | P.PROGSL ---
Subjective DATE: 11/13/2024 FOLLOW UP VISIT. Patient returned to sleep center for follow-up visit related to treatment of insomnia. Presently patient is on treatment with temazepam 15 mg 1 tablet at bedtime. With medication patient was able to increase time of sleep from about 2-4 hours until 6-7 hours. No any side effects. She continues to experience s ignificant symptoms of perimenopause. . [place] sleepiness scale is increased to 14. MEDICATIONS: Please see below During physical exam: GENERAL: A pleasant patient without any distress. VITAL SIGNS: Please see below. HEENT: PERRLA, EOMI. NECK: Supple. No JVD. LUNGS: Clear to percussion and to auscultation. Good air exchange. No wheezing or rhonchi. HEART: S1, S2 regular. ABDOMEN: Soft and nontender. EXTREMITIES: No clubbing or cyanosis. WAFER FAB OPERATOR: Awake, alert, and oriented x3. No focal deficit. Impressions: 1. Insomnia 2. Anxiety. 3. Depression. 4. Status post total hysterectomy. 5. Status post right mastectomy for surgical treatment of cancer. 6. Hot flashes. Plan: 1. Patient will continue treatment with temazepam 15 mg 30 minutes before bed time. 2. Sleep hygiene with regular time in bed for at least 8 hours. 3. Precautions related to driving. No driving if feel any sleepiness. Patient is aware about civil and criminal liability for unsafe driving, promised to f [place]ow recommendations. 4. Follow up visit in 4-6 months or earlier if patient has any problems. Thank you very much for allowing me to participate in the management of your patient. Troy Lowe MD, PhD, FAASM. Diplomat of [employer] [employer], Sleep Medicine Board by [employer] Supervisor [employer] [facility] [place] cc: Taniya Courtney DO Objective - Vital Signs Vital Signs: Vital Signs Temp 98.8 F 11/13/24 13:45 Pulse 88 11/13/24 13:45 Resp 16 11/13/24 13:45 BP 111/74 11/13/24 13:45 Pulse Ox 99 11/13/24 13:45 FiO2 Intake & Output 11/12/24 11/13/24 11/13/24 18:59 06:59 18:59 Weight 64.41 kg Home Medications: Home Medications Medication Instructions Recorded Confirmed Type PARoxetine HCL [Paxil] 30 mg PO DAILY #30 tab 07/12/18 08/13/18 Rx L.acidoph,Paracasei, B.lactis 1 cap PO DAILY 08/13/18 08/13/18 History [Probiotic] Ondansetron Odt [Zofran Odt] 4 mg PO Q8HR PRN #14 tab 08/13/18 Rx Temazepam [Restoril] 15 mg PO DAILY 11/13/24 11/13/24 History Venlafaxine HCl ER [Effexor XR] 37.5 mg PO DAILY 11/13/24 11/13/24 History clonazePAM [KlonoPIN] 0.5 mg PO DIRECTED PRN 11/13/24 11/13/24 History
== END ==
LOC: 3 N SLEEP 13:26
PROVIDERS: ATTEND Internal Medicine
DX: G47.00 Insomnia, unspecified (principal); F32.A Depression, unspecified; F41.9 Anxiety disorder, unspecified; R23.2 Flushing; Z90.710 Acquired absence of both cervix and uterus; Z90.11 Acquired absence of right breast and nipple
CPT/HCPCS: 99212